=== PATIENT | female | born 1980 | race African-American/Black ===

== ENCOUNTER 2016-09-29 15:58 | Emergency (ER) | payer BC ==
[2016-09-29] MEDS ORDERED: PRENATAL 19 TA1 EAC1 PO (16:11)
[2016-09-29 17:01] LABS: URINE APPEARANCE CLEAR; URINE BILIRUBIN NEGATIVE (NEG); URINE BLOOD LARGE (NEG); URINE COLOR PALE YELLOW; URINE GLUCOSE (UA) NEGATIVE (NEG); URINE KETONE NEGATIVE (NEG); URINE LEUKOCYTE ESTERASE NEGATIVE (NEG); URINE NITRITE NEGATIVE (NEG); URINE PROTEIN NEGATIVE (NEG); URINE SPECIFIC GRAVITY 1.005 (1.003-1.030)
[2016-09-29 17:06] LABS: URINE BACTERIA 2+
== END 2016-09-29 18:17 ==
LOC: EDMED 15:58
PROVIDERS: Emergency Medicine
DX: O20.0 Threatened abortion (principal); Z3A.01 Less than 8 weeks gestation of pregnancy